=== PATIENT | male | born 1965 | race Caucasian/White ===

== ENCOUNTER 2018-05-17 01:36 | Emergency (ER) | payer BC ==
[~2018-05-17] VITALS: Ht 177.8 cm; Wt 81.7 kg
[2018-05-17] MEDS ORDERED: Zithromax250 MG PO (03:47)
== END 2018-05-17 04:03 | disposition home or self-care (01) ==
LOC: ER 01:36
DX: J02.0 Streptococcal pharyngitis (principal); Z87.891 Personal history of nicotine dependence; Z88.0 Allergy status to penicillin
CPT/HCPCS: 99283; J1100